=== PATIENT | male | born 1955 | race American Indian/Alaskan Native ===

== ENCOUNTER 2017-06-07 11:28 | Inpatient (IN) | payer BC, OTHER ==
[2017-06-07 13:16] LABS: BASO # 0.06 K/mm3 (0.0-2.0); BASO % 1.2 % (0.0-3.0); EOS # 0.1 (0.0-0.7); EOS % 1.8 % (1.5-5.0); GRAN # 2.73 (1.4-6.5); GRAN % 53.9 % (50.0-68.0); HEMOGLOBIN 12.1 gm/dL (14.0-18.0); LYMPH # 1.9 (1.2-3.4); MEAN CELL VOLUME 81.6 fL (80.0-105.0); MEAN CORPUSCULAR HEMOGLOBIN 28.9 pg (25.0-35.0); MEAN CORPUSCULAR HGB CONC 35.4 g/dl (31.0-37.0); MONO # 0.3 (0.1-0.6); MONO % 6.1 % (1.0-6.0); PLATELET COUNT 317 10^3/uL (120.0-450.0); RBC 4.19 10^6/uL (3.5-6.1); RED CELL DISTRIBUTION WIDTH 12.9 % (11.5-14.5); WHITE BLOOD COUNT 5.1 10^3/ul (4.5-11.0)
[2017-06-07 13:27] LABS: ALB/GLOB RATIO 1.1 (1.1-1.8); ALT/SGPT 23 U/L (7-56); AST/SGOT 18 U/L (15-59); BLOOD UREA NITROGEN 15 mg/dL (7-21); GFR AFRICAN-AMERICAN > 60; GFR NON-AFRICAN AMERICAN 52; MAGNESIUM 1.7 mg/dL (1.7-2.2)
[2017-06-07 13:41] LABS: TROPONIN I < 0.01 ng/mL
--- NOTE | 2017-06-07 13:42 | ED PDOC ---
Arrival/HPI - General Historian: Patient, Family - General Chief Complaint: Altered Mental Status Time Seen by Provider: 06/07/17 12:09 - History of Present Illness Narrative History of Present Illness (Text): 06/07/17 13:41 Mr. Hinkle is a 62 year old male with past medical history of hypertension who presents with his family with a complaint of confusion for the past 3 weeks. Family indicates the patient has not been acting himself. Family indicates he is less active, taking more days off of work, change in his motor movement with increased confusion and trouble with his speech at times. They also indicate the patient has been noted to have mild paralysis of an upper extremity for 15 minutes with out the patient realizing. The patient has not been into see a primary care doctor in the recent past. The patient does have some trouble expressing himself and finding the right words. He is aware of himself, place, and time. He denies focal weakness or generalized weakness, numbness, chest pain, shortness of breath, change in bowel, and fever. (Zachary Arora) Past Medical History - Provider Review Nursing Documentation Reviewed: Yes - Infectious Disease Hx of Infectious Diseases: None - Genitourinary/Gynecological Other/Comment: Gential warts - Psychiatric Hx Substance Use: No - Surgical History Other/Comment: Knee surgery Family/Social History - Physician Review Nursing Documentation Reviewed: Yes Family/Social History: No Known Family HX Smoking Status: Light Smoker < 10 Cigarettes Daily Hx Alcohol Use: No Hx Substance Use: No Allergies/Home Meds Allergies/Adverse Reactions: Allergies Unobtainable Allergy (Verified 06/07/17 12:08) Home Medications: Home Meds Medication Instructions Recorded Confirmed No Known Home Med 06/07/17 06/07/17 Physical Exam Temperature: Afebrile Blood Pressure: Hypertensive Pulse: Regular Respiratory Rate: Normal Appearance: Positive for: Well-Appearing Pain Distress: None Mental Status: Positive for: Alert and Oriented X 3 Finger Stick Blood Glucose: 88 - Systems Exam Head: Present: Atraumatic, Normocephalic Pupils: Present: PERRL Extroacular Muscles: Present: EOMI Conjunctiva: Present: Normal Mouth: Present: Moist Mucous Membranes Neck: Present: Normal Range of Motion Respiratory/Chest: Present: Clear to Auscultation, Good Air Exchange. No: Respiratory Distress, Accessory Muscle Use Cardiovascular: Present: Regular Rate and Rhythm, Normal S1, S2. No: Murmurs Abdomen: Present: Normal Bowel Sounds. No: Tenderness, Distention, Peritoneal Signs Upper Extremity: Present: Normal Inspection, NORMAL PULSES. No: Cyanosis, Edema Lower Extremity: Present: Normal Inspection, NORMAL PULSES. No: Edema Neurological: Present: GCS=15, Other Vital Signs Temp Pulse Resp BP Pulse Ox 06/07/17 16:29 97 H 190/100 H 06/07/17 11:28 98.2 F 80 18 171/110 H 100 Medical Decision Making - Lab Interpretations I have reviewed the lab results: Yes - RAD Interpretation Tour Bus Driver: Radiologist - EKG Interpretation Interpreted by ED Physician: Yes Type: 12 lead EKG ED Course and Treatment: 06/07/17 15:34 Patient Seen With Resident: In agreement with resident note which contains more details about the patient. Patient was seen and evaluated with resident. Came up with plan and treatment together.. (Jose Puga DO) 06/07/17 15:10 Impression: - Mr. Hinkle is a 62 year old male with past medical history of hypertension who is brought in by his family with concerns of 3 week history of confusion and decrease in motor function. Differential Diagnosis included but are not limited to: - Brain mass - Hypertension - Previous Stroke - TIA Plan: - Labs: CBC, CMP, PT, PTT, Type and screen, - Imaging: EKG, CT of head, MRI with and without contrast - Meds: - Reassess and disposition Progress Notes: - Spoke with Dr. Garcia regarding admission to hospital and he is agreeable - Spoke with Dr. Colunga with neurosurgery and requests PT, PTT, Type and screen with admission for further work up 06/07/17 15:37 Chest X-ray Pleura: no pneumothorax Cardiovascular: mild cardiomegaly left ventricular enlargement Osseous structures: no significant abnormalities Impresion: No acute pulmonary pathology. specifically no pulmonary infiltrate. Left ventricular enlargement suggested 06/07/17 17:17 PROCEDURE: CT HEAD WITHOUT CONTRAST. FINDINGS: HEMORRHAGE:See below BRAIN:There is a large cystic lesion in the left frontal lobe measuring 4 x 6.5 cm in size. There is a dense fluid level on the dependent surface of the lesion consistent with a small amount of layered blood. There is mass effect with effacement of sulci and a small amount of midline shift. There is no surrounding vasogenic edema. The etiology is uncertain. This could represent a cystic neoplastic lesion or an intracranial abscess. It is unlikely represent a congenital cyst due to the mass effect. A follow-up MRI study with and without contrast is recommended for further evaluation VENTRICLES:Compression of the left lateral ventricle CALVARIUM:Unremarkable. PARANASAL SINUSES:Unremarkable as visualized. No significant inflammatory changes. MASTOID AIR CELLS:Unremarkable as visualized. No inflammatory changes. OTHER FINDINGS:The emergency department was contacted regarding this case at 2: 10 p.m. IMPRESSION:Large cystic lesion in the left frontal lobe measuring 4 x 6.5 cm. This could represent a cystic neoplasm or possibly an abscess. Follow-up MRI with and without contrast is recommended 06/07/17 17:21 (Zachary Arora) - Lab Interpretations Lab Results: 06/07/17 13:12 06/07/17 13:12 Lab Results 06/07/17 13:12: Free T4 1.12, Total T3 1.03, TSH 3rd Generation 0.92 06/07/17 13:12: Sodium 140, Potassium 3.7, Chloride 105, Carbon Dioxide 27, Anion Gap 12, BUN 15, Creatinine 1.4, Est GFR ( Amer) > 60, Est GFR (Non- Af Amer) 52, Random Glucose 82, Calcium 9.0, Magnesium 1.7, Total Bilirubin 0.6 , AST 18, ALT 23, Alkaline Phosphatase 42, Lactate Dehydrogenase 358, Total Creatine Kinase 75, Troponin I < 0.01, Total Protein 7.6, Albumin 4.0, Globulin 3.7, Albumin/Globulin Ratio 1.1 06/07/17 13:12: WBC 5.1, RBC 4.19, Hgb 12.1 L, Hct 34.2 L, MCV 81.6, MCH 28.9, MCHC 35.4, RDW 12.9, Plt Count 317, MPV 10.0, Gran % 53.9, Lymph % (Auto) 37.0 H , Newton % (Auto) 6.1 H, Eos % (Auto) 1.8, Baso % (Auto) 1.2, Gran # 2.73, Lymph # 1.9, Newton # 0.3, Eos # 0.1, Baso # 0.06 06/07/17 12:04: POC Glucose (mg/dL) 88 - RAD Interpretation Radiology Orders: 06/07/17 12:09 CHEST ONE VIEW [RAD] Stat 06/07/17 12:10 HEAD W/O CONTRAST [CT] Stat 06/07/17 14:34 BRAIN W & WO CONTRAST [MRI] Stat - EKG Interpretation EKG Interpretation (Text): 06/07/17 15:17 EKG: Ordered, reviewed, and independently interpreted the EKG. Rate : 74 BPM Rhythm : NSR Interpretation : No ST-segment elevations or depressions, no T-wave inversions, normal intervals. Left axis deviation (Ryanbarra,Zachary) - Medication Orders Current Medication Orders: Discontinued Medications Amlodipine Besylate (Norvasc) 5 mg PO STAT STA Stop: 06/07/17 15:49 Last Admin: 06/07/17 16:29 Dose: 5 mg - PA / COLLAR POINTER / Resident Statement / has reviewed & agrees with the documentation as recorded. / has examined the patient and agrees with the treatment plan. - Scribe Statement Lindsay Hardwick Provider Scribe Attestation: All medical record entries made by the Scribe were at my direction and personally dictated by me. I have reviewed the chart and agree that the record accurately reflects my personal performance of the history, physical exam, medical decision making, and the department course for this patient. I have also personally directed, reviewed, and agree with the discharge instructions and disposition. (Jose Puga DO) Disposition/Present on Arrival - Present on Arrival Any Indicators Present on Arrival: No History of DVT/PE: No History of Uncontrolled Diabetes: No Urinary Catheter: No History of Decub. Ulcer: No History Surgical Site Infection Following: None - Disposition Have Diagnosis and Disposition been Completed?: Yes Disposition Time: 16:45 Patient Plan: Admission - Disposition Diagnosis: Mass of brain Disposition: HOSPITALIZED Patient Problems: Current Active Problems Problem Status Onset Mass of brain Acute Condition: STABLE
[2017-06-07 13:44] LABS: FREE T4 1.12 ng/dL (0.78-2.19)
[2017-06-07 13:58] LABS: T3 1.03 ng/mL (0.97-1.69)
--- NOTE | 2017-06-07 14:13 | CT ---
PROCEDURE: CT HEAD WITHOUT CONTRAST. HISTORY: r/o ICH- h/o confusion/can't find words in speech COMPARISON: None available. TECHNIQUE: Axial computed tomography images were obtained through the head/brain without intravenous contrast. Radiation dose: Total exam DLP = 780 mGy-cm. This CT exam was performed using one or more of the following dose reduction techniques: Automated exposure control, adjustment of the mA and/or kV according to patient size, and/or use of iterative reconstruction technique. FINDINGS: HEMORRHAGE: See below BRAIN: There is a large cystic lesion in the left frontal lobe measuring 4 x 6.5 cm in size. There is a dense fluid level on the dependent surface of the lesion consistent with a small amount of layered blood. There is mass effect with effacement of sulci and a small amount of midline shift. There is no surrounding vasogenic edema. The etiology is uncertain. This could represent a cystic neoplastic lesion or an intracranial abscess. It is unlikely represent a congenital cyst due to the mass effect. A follow-up MRI study with and without contrast is recommended for further evaluation VENTRICLES: Compression of the left lateral ventricle CALVARIUM: Unremarkable. PARANASAL SINUSES: Unremarkable as visualized. No significant inflammatory changes. MASTOID AIR CELLS: Unremarkable as visualized. No inflammatory changes. OTHER FINDINGS: The emergency department was contacted regarding this case at 2:10 p.m. IMPRESSION: Large cystic lesion in the left frontal lobe measuring 4 x 6.5 cm. This could represent a cystic neoplasm or possibly an abscess. Follow-up MRI with and without contrast is recommended
--- NOTE | 2017-06-07 14:17 | RAD ---
PROCEDURE: CHEST RADIOGRAPH, 1 VIEW HISTORY: r/o infiltrate COMPARISON: None available. FINDINGS: LUNGS: Clear. PLEURA: No pneumothorax or pleural fluid seen. CARDIOVASCULAR: Mild cardiomegaly left ventricular enlargement. OSSEOUS STRUCTURES: No significant abnormalities. VISUALIZED UPPER ABDOMEN: Normal. OTHER FINDINGS: None. IMPRESSION: No acute pulmonary pathology. Specifically no pulmonary infiltrate. Para Left ventricular enlargement suggested
--- NOTE | 2017-06-07 17:23 | CARD ---
APPROVED REPORT EKG Measurement Heart [id number] <Conclusion> Normal sinus rhythm Left axis deviation Voltage criteria for left ventricular hypertrophy Nonspecific ST abnormality Abnormal ECG
[2017-06-07 18:16] LABS: INR 1.06 (0.93-1.08); PARTIAL THROMBOPLASTIN TIME 30.8 Seconds (23.7-30.8); PROTHROMBIN TIME 11.4 Seconds (9.9-11.8)
[2017-06-07 21:12] VITALS: RESP 20
--- NOTE | 2017-06-08 02:36 | CP.PCM.PN ---
Subjective - Date & Time of Evaluation Date of Evaluation: 06/08/17 Time of Evaluation: 02:36 - Subjective Subjective: Patient was seen at bedside because nurse had called and told that his low heart rate was 50/min and latest one was 58 per minute. He has no complaints now. Denies chest pain, sob, history of heart disease. Agrees to having history of athletic activities. BP 144/93. This 62 year old [place] male was admitted with history of confusion for 3 weeks, trouble with speech, weakness of upper extremity, brain mass. Has PMH of HTN, light smoker. Objective - Vital Signs/Intake and Output Vital Signs (last 24 hours): Temp Pulse Resp BP Pulse Ox 98 F 51 L 20 141/93 H 98 06/08/17 01:09 06/08/17 01:09 06/08/17 01:09 06/08/17 01:09 06/07/17 16:00 Intake and Output: 06/07/17 06/08/17 18:59 06:59 Intake Total 360 Output Total 500 Balance -140 - Medications Medications: Current Medications Clonidine HCl (Catapres) 0.1 mg PO TID BRI Levetiracetam (Keppra) 500 mg PO BID BRI - Labs Labs: PT 11.4 Seconds (9.9-11.8) 06/07/17 13:05 INR 1.06 (0.93-1.08) 06/07/17 13:05 APTT 30.8 Seconds (23.7-30.8) 06/07/17 13:05 - Constitutional Appears: Well, No Acute Distress - Head Exam Head Exam: ATRAUMATIC, NORMAL INSPECTION, NORMOCEPHALIC - Eye Exam Eye Exam: Normal appearance - ENT Exam ENT Exam: Normal External Ear Exam - Neck Exam Neck Exam: Normal Inspection - Respiratory Exam Respiratory Exam: NORMAL BREATHING PATTERN - Cardiovascular Exam Cardiovascular Exam: absent: JVD - GI/Abdominal Exam GI & Abdominal Exam: absent: Distended - Rectal Exam Rectal Exam: Deferred - Exam Additional comments: Deferred. - Extremities Exam Extremities Exam: Normal Inspection - Back Exam Back Exam: NORMAL INSPECTION - Neurological Exam Neurological Exam: Alert, Oriented x3 - Psychiatric Exam Psychiatric exam: Normal Affect, Normal Mood - Skin Skin Exam: Normal Color Assessment and Plan - Assessment and Plan (Free Text) Assessment: Confusion. Speech difficulty. Intermittent bradycardia. HTN. Brain mass.-Cystic lesion in left frontal lobe. Light smoker. Plan: Observation for heart rhythm. Management as per PMD.
--- NOTE | 2017-06-08 03:35 | CON ---
HISTORY OF PRESENT ILLNESS: This is a 62-year-old black male with past medical history of hypertension, and the patient has not been going to doctor, came here with confusion for the past 3 weeks and at the bedside, and the patient has been taking more days off from the work and still confused. So, family brought him to the emergency room today with a complaint of increasing confusion and trouble in speaking and called to evaluate the patient. CAT scan of the head was done which showed large cyst in the brain and neurosurgeon was called, and the patient is going for MRI. PAST MEDICAL HISTORY: As above. SOCIAL HISTORY: Does not smoke, does not drink. PHYSICAL EXAMINATION VITAL SIGNS: Blood pressure 171/110. HEENT: Normocephalic and atraumatic. NECK: Supple. NEUROLOGIC: Alert, awake and oriented x3. No aphasia. Cranial nerve II through XII are tested. Pupils reactive. EOM intact. Visual field full. No facial asymmetry. Tongue midline. Motor: Moves all the extremities equally and spontaneously. Deep tendon reflexes is 1+. Both plantars are downgoing. Sensory appears intact. Cerebellar and gait, deferred. IMPRESSION: Intracranial mass on the CAT scan and we will do the MRI of the head and neurosurgeon on-board will follow up for further recommendation. I started the patient on Keppra 500 twice a day. Morro Mills MD
--- NOTE | 2017-06-08 03:39 | HP ---
HISTORY OF PRESENT ILLNESS: I was called down to the emergency room to see, Mitul Hinkle. This is 62-year-old -[place] male who presents with 3 weeks of not-acting himself. He has been a little bit off, less active, taking more days off from work, changes his motor movement, increased confusion, trouble with the speech at times. He had mild paralysis of the left upper extremity for 15 minutes without patient realizing it. He has not been seeing his primary care doctor. PAST MEDICAL HISTORY: Hypertension. Not sure if he has taken his medications because it is quite high. He said in the past, he has had knee surgery. FAMILY HISTORY: Hypertension in the family. SOCIAL HISTORY: He is a live smoker, 10 cigarettes per day. No alcohol. No drugs. ALLERGIES: COULD NOT OBTAIN. MEDICATIONS: Could not obtain. REVIEW OF SYSTEMS: He had some vision and hearing issues. He is little bit off when I talk to him. No apparent chest pain or shortness of breath. He has been weak at times, little bit confused. Hard to get a good review systems on him. PHYSICAL EXAMINATION GENERAL: He is alert and oriented times 2 to 3 depends. He is well appearing. No acute distress to look at him, but he is a little bit off. VITAL SIGNS: He has 98.2 temperature, 80 pulse, 18 respiratory rate, 171/110 blood pressure, I have put him on Norvasc 5 mg daily and 100% O2 saturation. HEENT: Extraocular muscle intact. Pupils equal and reactive to light and accommodation. Throat moist. NECK: Supple. Thyroid midline. No palpable lymphadenopathy appreciated. HEART: Regular rate, normal S1, S2. LUNGS: Decreased breath sounds. Clear to auscultation. ABDOMEN: Soft and nontender. Positive bowel sounds. EXTREMITIES: No edema. NEUROLOGIC: GCS is 15. Neurologically he is little bit off, but he has got good range of motion of his extremities. SKIN: Warm and dry. LABORATORY DATA: He has 140 sodium, potassium 3.7, BUN 15, creatinine 1.4, GFR 62, sugar 82, calcium 9, magnesium 1.7, total bilirubin is 0.68, AST is 18, ALT is 23, alk phos is 42, lactate lactate dehydrogenase is 358, total creatinine kinase 75, troponin 1 is less than 0.01, total protein 7.6, albumin 4, globulin 3.7, TSH is 492. White count 5.1, hemoglobin 12.1, hematocrit 34.2, platelets 317. Chest x-ray; left ventricular enlargement, no acute pulmonary pathology. CAT of the head which shows something that we are not expecting, large cystic lesion in the left frontal lobe measuring 4 x 6.5 cm this could represent a cystic lesion or possibly an abscess, could be a cystic neoplasm. IMPRESSION AND PLAN: I called neurology, neurosurgeon and cardiology. I have put him on Norvas. Check labs tomorrow. Keep the blood pressure down. Hopefully, he will be okay and we will see how he does overnight. See what the neurosurgeon wants to do. He has got change in mentation and physical ability with brain mass and elevated hypertension. Alan Gee DO MTDD
[2017-06-08 07:11] LABS: MEAN CELL VOLUME 81.9 fL (80.0-105.0); MEAN CORPUSCULAR HEMOGLOBIN 27.8 pg (25.0-35.0); MEAN CORPUSCULAR HGB CONC 33.9 g/dl (31.0-37.0); MEAN PLATELET VOLUME 9.8 fl (7.0-11.0); RBC 4.32 10^6/uL (3.5-6.1); RED CELL DISTRIBUTION WIDTH 13.1 % (11.5-14.5); WHITE BLOOD COUNT 5.8 10^3/ul (4.5-11.0)
[2017-06-08 07:46] LABS: ALB/GLOB RATIO 1.2 (1.1-1.8); ALBUMIN 3.9 g/dL (3.0-4.8); ALT/SGPT 21 U/L (7-56); AST/SGOT 22 U/L (15-59); BLOOD UREA NITROGEN 15 mg/dL (7-21); CALCIUM 8.7 mg/dL (8.4-10.5); GFR AFRICAN-AMERICAN > 60; GFR NON-AFRICAN AMERICAN 56
--- NOTE | 2017-06-08 10:01 | PN ---
HISTORY OF PRESENT ILLNESS: I saw the patient in bed this morning. He is mildly confused, but in fair spirits. No chest pain, no shortness of breath, no headache. He is not really sure why he is here that he has got a brain mets, so I went over that again with him. Neurosurgery had spoken and Neurology is on the case. PHYSICAL EXAMINATION VITAL SIGNS: 98 temperature; 50 pulse; 155/88 to 141/92 blood pressures; 20 respiratory rate and 100% O2 on room air. HEENT: Head is atraumatic and normocephalic. Throat is moist. NECK: Supple. HEART: Regular rate. LUNGS: Decreased breath sounds. Clear to auscultation. ABDOMEN: Soft. EXTREMITIES: No edema. MEDICATIONS: He is on Catapres 0.1 three times a day and Keppra 500 twice a day to be the procedure precaution. LABORATORY DATA: He has 140 sodium, potassium 3.9, BUN 15, creatinine 1.3, GFR is 56, sugar is 88, calcium is 8.7, magnesium is 1.7, total bilirubin is 0.7, AST is 22, ALT is 21, alkaline phosphatase is 41, troponin is less than 0.01, total protein is 7.3, TSH is 0.92. 5.8 white count, 12 hemoglobin, 35.4 hematocrit with 315 platelets. He has consults with Neurology, Neurosurgery and Cardiology. He is on Catapres. He is on Keppra. They can do an MRI of the brain which will help give us more of a picture what we need to do and we will continue aggressive treatment and care for brain mets, hypertension, confusion. We will check his labs tomorrow and discuss with him. Alan Gee DO MTDChiara
--- NOTE | 2017-06-08 10:35 | CP.PCM.PN ---
<GarethCady - Last Filed: 06/08/17 13:28> Subjective - Date & Time of Evaluation Date of Evaluation: 06/08/17 Time of Evaluation: 10:00 - Subjective Subjective: PGY-2 neurology progress note for Dr Mills. Patient lying comfortably on the bed, in no distress. Patient is a&ox3, patient reprots his confusion has resolved. Patient denies cp, sob, n.v.d. Objective - Vital Signs/Intake and Output Vital Signs (last 24 hours): Temp Pulse Resp BP Pulse Ox 98 F 50 L 20 164/100 H 100 06/08/17 08:25 06/08/17 08:25 06/08/17 08:25 06/08/17 09:23 06/08/17 08:25 Intake and Output: 06/08/17 06/08/17 06:59 18:59 Intake Total 360 Output Total 500 Balance -140 - Medications Medications: Current Medications Clonidine HCl (Catapres) 0.1 mg PO TID [facility] Last Admin: 06/08/17 09:23 Dose: 0.1 mg Levetiracetam (Keppra) 500 mg PO BID [facility] Last Admin: 06/08/17 09:23 Dose: 500 mg - Labs Labs: 06/08/17 06:30 06/08/17 06:30 PT 11.4 Seconds (9.9-11.8) 06/07/17 13:05 INR 1.06 (0.93-1.08) 06/07/17 13:05 APTT 30.8 Seconds (23.7-30.8) 06/07/17 13:05 - Constitutional Appears: No Acute Distress - Head Exam Head Exam: ATRAUMATIC, NORMAL INSPECTION, NORMOCEPHALIC - Eye Exam Eye Exam: EOMI, Normal appearance, PERRL. absent: Scleral icterus Pupil Exam: NORMAL ACCOMODATION, PERRL - ENT Exam ENT Exam: Mucous Membranes Moist - Neck Exam Neck Exam: Full ROM, Normal Inspection - Respiratory Exam Respiratory Exam: Clear to Ausculation Bilateral, NORMAL BREATHING PATTERN. absent: Rales, Rhonchi, Wheezes, Respiratory Distress, Stridor - Cardiovascular Exam Cardiovascular Exam: REGULAR RHYTHM, +S1, +S2 - GI/Abdominal Exam GI & Abdominal Exam: Soft, Normal Bowel Sounds. absent: Distended, Tenderness - Extremities Exam Extremities Exam: Full ROM, Normal Inspection - Back Exam Back Exam: NORMAL INSPECTION - Neurological Exam Neurological Exam: Alert, Awake, CN II-XII Intact, Oriented x3, Reflexes Normal Neuro motor strength exam: Left Upper Extremity: 5, Right Upper Extremity: 5, Left Lower Extremity: 5, Right Lower Extremity: 5 Additional comments: +2 reflexes throughout. No muscle rigidities, no pronator drifts, normal finger to nose. Sensation to light touch in the face and lower extremities intact Gait deferred. - Psychiatric Exam Psychiatric exam: Normal Affect, Normal Mood - Skin Skin Exam: Dry, Normal Color, Warm Assessment and Plan - Assessment and Plan (Free Text) Assessment: Patient is a 62 y/o AAM with pmh of htn, light smoker whom presented with 2 days of confusion found to have hypertensive urgency on admission, with Ct brain revealing cystic brain lesion. Patient is being followed by neurosurgery. Plan: - Pending MRI - Follow up with neurosurgeon rec - Rec heme/onc consult - c/w keppra for seizure prephylaxis - seizure and fall precaution - Keep SBP between 130-140s. Thank you for consulting Dr Mills. Patient seen, examined, and discussed with Dr Mills. <Ramon Mills - Last Filed: 06/08/17 14:03> Objective - Vital Signs/Intake and Output Vital Signs (last 24 hours): Temp Pulse Resp BP Pulse Ox 98 F 50 L 20 164/100 H 100 06/08/17 08:25 06/08/17 08:25 06/08/17 08:25 06/08/17 09:23 06/08/17 08:25 Intake and Output: 06/08/17 06/08/17 06:59 18:59 Intake Total 360 Output Total 500 Balance -140 - Medications Medications: Current Medications Levetiracetam (Keppra) 500 mg PO BID [facility] Last Admin: 06/08/17 09:23 Dose: 500 mg Losartan Potassium (Cozaar) 100 mg PO DAILY [facility] - Labs Labs: 06/08/17 06:30 06/08/17 06:30 PT 11.4 Seconds (9.9-11.8) 06/07/17 13:05 INR 1.06 (0.93-1.08) 06/07/17 13:05 APTT 30.8 Seconds (23.7-30.8) 06/07/17 13:05 Attending/Attestation - Attestation I have personally seen and examined this patient.: Yes I have fully participated in the care of the patient.: Yes I have reviewed all pertinent clinical information, including history, physical exam and plan: Yes
[2017-06-08] MEDS ORDERED: Gadodiamide 287 MG/ML VIAL (15ML) IV ONE (13:19)
--- NOTE | 2017-06-08 14:20 | CT ---
PROCEDURE: CT Abdomen and Pelvis without intravenous contrast HISTORY: abdominal mass COMPARISON: None. TECHNIQUE: Without contrast. Contrast Dose: Radiation dose: Total exam DLP = 806 mGy-cm. This CT exam was performed using one or more of the following dose reduction techniques: Automated exposure control, adjustment of the mA and/or kV according to patient size, and/or use of iterative reconstruction technique. FINDINGS: LOWER THORAX: Unremarkable. LIVER: Unremarkable. No gross lesion or ductal dilatation. GALLBLADDER AND BILE DUCTS: Unremarkable. PANCREAS: Unremarkable. No gross lesion or ductal dilatation. SPLEEN: Unremarkable. ADRENALS: Unremarkable. No mass. KIDNEYS AND URETERS: Unremarkable. No hydronephrosis. No solid mass. There is some contrast in the renal collecting systems most likely related to recent MRI. VASCULATURE: Unremarkable. No aortic aneurysm. BOWEL: Unremarkable. No obstruction. No gross mural thickening. APPENDIX: Unremarkable. Normal appendix. PERITONEUM: Unremarkable. No free fluid. No free air. LYMPH NODES: Bilateral inguinal adenopathy right greater than left. BLADDER: Unremarkable. REPRODUCTIVE: Unremarkable. BONES: No acute fracture. OTHER FINDINGS: Extensive unusual appearing cutaneous lesions are seen in the lower abdomen which have an a regular contour. The masses measure 2.5 cm in thickness and span a with of 22 cm over the lower pelvis as seen on axial image 157 and coronal image 27. The mass also involves the left side of the scrotum. Clinical correlation is suggested. IMPRESSION: Extensive large cutaneous lesions over the lower pelvis 2.5 cm in thickness and 23 cm in width. Bilateral inguinal adenopathy right greater than left.
--- NOTE | 2017-06-08 14:52 | MRI ---
PROCEDURE: MRI BRAIN WITH AND WITHOUT CONTRAST HISTORY: left frontal lobe cystic lesion COMPARISON: Head CT dated 06/07/2017 without contrast. TECHNIQUE: Multiplanar, multisequence MR images of the brain were obtained with and without intravenous contrast enhancement. FINDINGS: HEMORRHAGE: Please see brain parenchyma discussion below. DWI: No evidence of an acute or early subacute infarction. BRAIN PARENCHYMA: The cystic lesions seen in the left frontal lobe in prior CT noted above is identified following fluid signal on all sequences measuring 4.9 x 7.4 x 5.6 cm (traverse by anteroposterior by superoinferior dimensions). Trace hemosiderin layers at the dependent portion of the cyst with the cyst appearing minimally complicated antro superiorly. In addition, local parenchyma appears inhomogeneous in signal change here at the medial right frontal lobe near the vertex. No additional hemosiderin is appreciated throughout the remainder of the brain there is no evidence of an acute is her brain infarction. Mass effect exerted by this large cyst is quite mild causing a rightward shift of 9.4 mm. Limited but definite rim enhances appreciate throughout this cystic structure with a enhancement of complex portion the cyst anterosuperiorly. Minimally edematous soft tissue adjacent to this complex component (superiorly) did not appear to significantly enhance. Presence of the this nodular appearing tissue however raises question of an intermediate grade malignancy with an infectious etiology still not completely excluded though not favored. ENHANCEMENT: Discussed above VENTRICLES: The aforementioned left frontal cystic mass at partially effaces the left lateral ventricle. . No hydrocephalus. CRANIUM: Unremarkable. ORBITS: Grossly unremarkable. PARANASAL SINUSES/MASTOIDS: Clear VASCULAR SYSTEM: Skull base flow voids intact. OTHER FINDINGS: None . IMPRESSION: A 7.4 cm complex cystic mass in the left frontal lobe with nodular soft tissue anterosuperiorly associated with it and limited peripheral enhancement in a pattern that may reflect an intermediate-grade primarily with metastatic disease not completely excluded. [id number] mass effect is exerted by this cystic mass with limited rightward midline shift just under 1 cm. An infectious etiology remains difficult to completely exclude but is not favored. Neurosurgical consultation is advised.
[2017-06-08 16:31] VITALS: TEMP 98.6
--- NOTE | 2017-06-08 16:52 | CP.PCM.CON ---
<Cristela Valdez - Last Filed: 06/08/17 20:05> History of Present Illness - History of Present Illness History of Present Illness: Seen and examined at bedside with present, chart reviewed. Request for consult is for abdominal mass. HPI: This is a 62 year old male with a PMH of hypertension, was brought to the ER with reports of trouble with speech, patient has periods of confusion, paralysis/weakness of upper extremities mainly left upper and has become less active. His states that he has not been to the doctor for at least 20 years. He had a heat ct on admission that reveal a large cystic mass in the left frontal lobe. He just return form MRI of the brain, The patient is also noted to have a cutaneous growth in his suprapubic area mainly on the right side. The patient and the report that he has had it for years and that it started one or two on his genital area and has been growing, he has never had it checked. He denies pain, bleeding. Denies any known STDs. Denies weight loss , N/V, abdominal pain, dysuria, hematuria, no loss in appetite. Never had egd or colon. PMH: HTN PSH: denies Allergies: denies Family HX: denies MEDS: reviewed as per MAR Social HX: former smoker, denies etoh, drugs ROS: systems reviewed at best with positive findings, see HPI. ct scan A&P, no contrast: report reviewed show large cutaneous mass lower pelvis , bilateral inguinal adenopathy. No acute findings bowel. Brain MRI report reviewed:left frontal cystic mass cant exclude infectious etiology but not favored , rec neurosurgical evaluation Past Patient History - Infectious Disease Hx of Infectious Diseases: None - Past Social History Smoking Status: Current Some Days Smoker - CARDIAC Hx Hypertension: Yes - MUSCULOSKELETAL/RHEUMATOLOGICAL Hx Falls: No - GENITOURINARY/GYNECOLOGICAL Other/Comment: Gential warts - PSYCHIATRIC Hx Substance Use: No - SURGICAL HISTORY Other/Comment: Knee surgery Meds Allergies/Adverse Reactions: Allergies Allergy/AdvReac Type Severity Reaction Status Date / Time Unobtainable Allergy Verified 06/07/17 12:08 - Medications Medications: Current Medications Levetiracetam (Keppra) 500 mg PO BID [facility] Last Admin: 06/08/17 09:23 Dose: 500 mg Losartan Potassium (Cozaar) 100 mg PO DAILY [facility] Physical Exam - Constitutional Appears: No Acute Distress - Head Exam Head Exam: NORMAL INSPECTION - Eye Exam Eye Exam: Normal appearance. absent: Scleral icterus - ENT Exam ENT Exam: Mucous Membranes Moist - Neck Exam Neck exam: Positive for: Normal Inspection - Respiratory Exam Respiratory Exam: Clear to Auscultation Bilateral, Prolonged Expiratory Phase. absent: Respiratory Distress - Cardiovascular Exam Cardiovascular Exam: +S1, +S2 - GI/Abdominal Exam GI & Abdominal Exam: Normal Bowel Sounds, Soft. absent: Distended, Guarding, Organomegaly, Rebound, Tenderness Additional comments: supra pubic mainly right side with large cutaneous mass, overgrowth in large bunches, with foul odor. also noted on groin and a few near penile area, nontender - Extremities Exam Extremities exam: Positive for: pedal pulses present. Negative for: calf tenderness, pedal edema - Neurological Exam Neurological exam: Alert, Oriented x3 - Skin Skin Exam: Dry, Warm Results - Vital Signs Recent Vital Signs: Last Vital Signs Temp 98 F 06/08/17 08:25 Pulse 50 L 06/08/17 08:25 Resp 20 06/08/17 08:25 BP 164/100 H 06/08/17 09:23 Pulse Ox 100 06/08/17 08:25 - Labs Result Diagrams: 06/08/17 06:30 06/08/17 06:30 Labs: Laboratory Results - last 24 hr 06/08/17 06/08/17 06:30 06:30 WBC 5.8 RBC 4.32 Hgb 12.0 L Hct 35.4 L MCV 81.9 MCH 27.8 MCHC 33.9 RDW 13.1 Plt Count 315 MPV 9.8 Sodium 140 Potassium 3.9 Chloride 103 Carbon Dioxide 27 Anion Gap 14 BUN 15 Creatinine 1.3 Est GFR ( Amer) > 60 Est GFR (Non-Af Amer) 56 Random Glucose 88 Calcium 8.7 Total Bilirubin 0.7 AST 22 ALT 21 Alkaline Phosphatase 41 Total Protein 7.3 Albumin 3.9 Globulin 3.4 Albumin/Globulin Ratio 1.2 Assessment & Plan - Assessment and Plan (Free Text) Assessment: ASSESSMENT: Change in mental status Left frontal Brain Mass Suprapubic large Cutaneous Mass, r/o extensive Condyloma acuminatum Bilateral inguinal adenopathy H/O HTN PLAN: consider ID & dermatology eval diet as tolerated on Keppra dvt prophylaxsis surgery following neurology following neurosurgical eval Thank you for this consult and for allowing us to participate in your patient care, will make further recommendations based upon clinical course. Seen and discussed with Dr. Jewell. <Vikki Jewell V - Last Filed: 06/08/17 23:36> Meds - Medications Medications: Current Medications Levetiracetam (Keppra) 500 mg PO BID [facility] Last Admin: 06/08/17 18:05 Dose: 500 mg Losartan Potassium (Cozaar) 100 mg PO DAILY [facility] Last Admin: 06/08/17 15:17 Dose: 100 mg Results - Vital Signs Recent Vital Signs: Last Vital Signs Temp 98.6 F 06/08/17 16:00 Pulse 54 L 06/08/17 16:00 Resp 20 06/08/17 16:00 BP 153/90 H 06/08/17 19:45 Pulse Ox 100 06/08/17 16:00 - Labs Result Diagrams: 06/08/17 06:30 06/08/17 06:30 Labs: Laboratory Results - last 24 hr 06/08/17 06/08/17 06/08/17 06:30 06:30 22:21 WBC 5.8 RBC 4.32 Hgb 12.0 L Hct 35.4 L MCV 81.9 MCH 27.8 MCHC 33.9 RDW 13.1 Plt Count 315 MPV 9.8 Sodium 140 Potassium 3.9 Chloride 103 Carbon Dioxide 27 Anion Gap 14 BUN 15 Creatinine 1.3 Est GFR ( Amer) > 60 Est GFR (Non-Af Amer) 56 Random Glucose 88 Calcium 8.7 Total Bilirubin 0.7 AST 22 ALT 21 Alkaline Phosphatase 41 Total Protein 7.3 Albumin 3.9 Globulin 3.4 Albumin/Globulin Ratio 1.2 Urine Color Yellow Urine Appearance Clear Urine pH 6.0 Ur Specific [place] 1.020 Urine Protein Negative Urine Glucose (UA) Negative Urine Ketones Negative Urine Blood Negative Urine Nitrate Negative Urine Bilirubin Negative Urine Urobilinogen 0.2 Ur Leukocyte Esterase Negative Attending/Attestation - Attestation I have personally seen and examined this patient.: Yes I have fully participated in the care of the patient.: Yes I have reviewed all pertinent clinical information: Yes Notes (Text): th
--- NOTE | 2017-06-08 16:56 | CON ---
DATE: 06/08/2017 HISTORY OF PRESENT ILLNESS: The patient is a 62-year-old male who presents with several weeks of progressive confusion. CT scan revealed a large cyst in intracerebral. PAST MEDICAL HISTORY: The patient's past medical history is notable for hypertension, which he is not on any medications. No previous cardiac history is noted. Negative diabetes mellitus. The patient denies chest pain or shortness of breath. SOCIAL HISTORY: No smoking history is elicited. REVIEW OF SYSTEMS: Reviewed. PHYSICAL EXAMINATION: VITAL SIGNS: Blood pressure varies from 141-164 systolic, heart rate is in the 50s. NECK: Negative JVD. LUNGS: Without rales. HEART: Reveals a 2/6 systolic ejection murmur. EXTREMITIES: Without edema. EKG shows nonspecific ST-T changes. LABORATORY DATA: Laboratories reveal hemoglobin of 12. The BUN and creatinine are unremarkable. IMPRESSION: 1. Progressive confusion. 2. Intracerebral cyst. 3. Hypertension. 4. No previous cardiac history, although a systolic murmur was noted. PLAN: Given these findings, we will obtain an echocardiogram to evaluate LV function as well as heart murmur. In addition, we will change his clonidine to an ARB for better blood pressure control. Alberto Sorto MD
--- NOTE | 2017-06-08 19:11 | CP.PCM.CON ---
History of Present Illness - History of Present Illness History of Present Illness: General Surgery Consult- Dr. Maguire reason for consult: Abdominal Mass 62M PMH of HTN, presented to the ED with trouble w/ speech, periods of confusion paralysis/weakness of upper extremities mainly left upper and has become less active. Surgery was consulted for mass on lower abdomen. Pt states that the mass has been there for a long time. initial started as a small growth on the shaft of his penis and spread suprapubic. Intermittent malodorous drainage occurred over the last couple of years. was present in the room and states he has not seen a doctor in 20 years. and that she had not seen the mass in a long time. Denies any known STDs. Denies weight loss, N/V, abdominal pain, dysuria, hematuria, no loss in appetite. PMHx: HTN PSH: None ALL: NKDA SocialHx: smoker 1ppd >40yrs Review of Systems - Review of Systems All systems: reviewed and no additional remarkable complaints except Past Patient History - Infectious Disease Hx of Infectious Diseases: None - Past Social History Smoking Status: Current Some Days Smoker - CARDIAC Hx Hypertension: Yes - MUSCULOSKELETAL/RHEUMATOLOGICAL Hx Falls: No - GENITOURINARY/GYNECOLOGICAL Other/Comment: Gential warts - PSYCHIATRIC Hx Substance Use: No - SURGICAL HISTORY Other/Comment: Knee surgery Meds Allergies/Adverse Reactions: Allergies Allergy/AdvReac Type Severity Reaction Status Date / Time Unobtainable Allergy Verified 06/07/17 12:08 - Medications Medications: Current Medications Levetiracetam (Keppra) 500 mg PO BID [facility] Last Admin: 06/08/17 18:05 Dose: 500 mg Losartan Potassium (Cozaar) 100 mg PO DAILY [facility] Last Admin: 06/08/17 15:17 Dose: 100 mg Physical Exam - Constitutional Appears: No Acute Distress - Eye Exam Eye Exam: EOMI - ENT Exam ENT Exam: Mucous Membranes Moist - Respiratory Exam Respiratory Exam: NORMAL BREATHING PATTERN. absent: Accessory Muscle Use, Rales , Rhonchi, Wheezes - Cardiovascular Exam Cardiovascular Exam: +S1, +S2 - GI/Abdominal Exam GI & Abdominal Exam: Mass, Soft Additional comments: cauliflower like mass suprapubic 20cm x 10cm. mild purulent drainage - Skin Additional comments: purulent caulifour pattern suprapubic Results - Vital Signs Recent Vital Signs: Last Vital Signs Temp 98.6 F 06/08/17 16:00 Pulse 54 L 06/08/17 16:00 Resp 20 06/08/17 16:00 BP 166/100 H 06/08/17 16:00 Pulse Ox 100 06/08/17 16:00 - Labs Result Diagrams: 06/08/17 06:30 06/08/17 06:30 Labs: Laboratory Results - last 24 hr 06/08/17 06/08/17 06:30 06:30 WBC 5.8 RBC 4.32 Hgb 12.0 L Hct 35.4 L MCV 81.9 MCH 27.8 MCHC 33.9 RDW 13.1 Plt Count 315 MPV 9.8 Sodium 140 Potassium 3.9 Chloride 103 Carbon Dioxide 27 Anion Gap 14 BUN 15 Creatinine 1.3 Est GFR ( Amer) > 60 Est GFR (Non-Af Amer) 56 Random Glucose 88 Calcium 8.7 Total Bilirubin 0.7 AST 22 ALT 21 Alkaline Phosphatase 41 Total Protein 7.3 Albumin 3.9 Globulin 3.4 Albumin/Globulin Ratio 1.2 Assessment & Plan - Assessment and Plan (Free Text) Assessment: 62M AMS with abdominal Mass Plan: - consider getting Infectious disease on board - STD work up - possible biopsy of lesion - c/w medical management - further recs per Dr. Maguire D/W Dr. Andrez Leung PGY1 - Date & Time Date: 06/08/17 Time: 15:30
[2017-06-08 22:34] LABS: URINE BILIRUBIN NEGATIVE (NEGATIVE); URINE BLOOD NEGATIVE (NEGATIVE); URINE GLUCOSE (UA) NEGATIVE (NEGATIVE); URINE LEUKOCYTE ESTERASE NEGATIVE Leu/uL (NEGATIVE); URINE NITRATE NEGATIVE (NEGATIVE); URINE PROTEIN NEGATIVE mg/dL (<30 mg/dL); URINE UROBILINOGEN 0.2 E.U./dL (<1 E.U./dL)
[2017-06-08 22:35] LABS: URINE APPEARANCE CLEAR (CLEAR); URINE COLOR YELLOW (YELLOW)
[2017-06-09 04:52] VITALS: O2SAT 100
[2017-06-09 07:24] LABS: HEMOGLOBIN 12.1 gm/dL (14.0-18.0); MEAN CELL VOLUME 81.6 fL (80.0-105.0); MEAN CORPUSCULAR HEMOGLOBIN 28.1 pg (25.0-35.0); MEAN CORPUSCULAR HGB CONC 34.5 g/dl (31.0-37.0); RBC 4.3 10^6/uL (3.5-6.1); WHITE BLOOD COUNT 4.9 10^3/ul (4.5-11.0)
[2017-06-09 08:30] LABS: ALB/GLOB RATIO 1.1 (1.1-1.8); ALBUMIN 3.8 g/dL (3.0-4.8); ALT/SGPT 20 U/L (7-56); AST/SGOT 20 U/L (15-59); BLOOD UREA NITROGEN 15 mg/dL (7-21); CALCIUM 8.8 mg/dL (8.4-10.5); GFR AFRICAN-AMERICAN > 60; GFR NON-AFRICAN AMERICAN > 60
[2017-06-09 08:32] VITALS: BP 160/101
--- NOTE | 2017-06-09 09:01 | CP.PCM.PN ---
Subjective - Date & Time of Evaluation Date of Evaluation: 06/09/17 Time of Evaluation: 08:57 - Subjective Subjective: General Surgery Progress Note Resident: Neal Attending: Andrez HPI: Patient seen and examined at bedside. Doing well with no complaints at this time. Tolerating diet. Denies N/V/F/CP/SOB. Able to answer questions appropriately. Objective - Vital Signs/Intake and Output Vital Signs (last 24 hours): Temp Pulse Resp BP Pulse Ox 98.6 F 56 L 20 160/101 H 100 06/09/17 06:00 06/09/17 06:00 06/09/17 06:00 06/09/17 06:00 06/09/17 06:00 Intake and Output: 06/09/17 06/09/17 06:59 18:59 Intake Total 840 Balance 840 - Medications Medications: Current Medications Clonidine HCl (Catapres) 0.1 mg PO BID [facility] Levetiracetam (Keppra) 500 mg PO BID [facility] Last Admin: 06/08/17 18:05 Dose: 500 mg Losartan Potassium (Cozaar) 100 mg PO DAILY [facility] Last Admin: 06/08/17 15:17 Dose: 100 mg - Labs Labs: 06/09/17 06:30 06/09/17 06:30 PT 11.4 Seconds (9.9-11.8) 06/07/17 13:05 INR 1.06 (0.93-1.08) 06/07/17 13:05 APTT 30.8 Seconds (23.7-30.8) 06/07/17 13:05 - Constitutional Appears: Well - Eye Exam Eye Exam: EOMI - ENT Exam ENT Exam: Mucous Membranes Moist - Respiratory Exam Respiratory Exam: Clear to Ausculation Bilateral - Cardiovascular Exam Cardiovascular Exam: REGULAR RHYTHM - GI/Abdominal Exam GI & Abdominal Exam: Soft. absent: Distended, Tenderness Additional comments: Suprapubic fungating mass - Neurological Exam Neurological Exam: Alert, Awake Assessment and Plan - Assessment and Plan (Free Text) Assessment: 62 y/o male with suprapubic mass * ID recs * incisional biopsy monday * will discuss with Dr. Andrez De Jesus DO PGY-1
[2017-06-09 09:43] VITALS: PULSE 60
--- NOTE | 2017-06-09 11:40 | CP.PCM.PN ---
<Cristela Valdez - Last Filed: 06/09/17 11:39> Subjective - Date & Time of Evaluation Date of Evaluation: 06/09/17 Time of Evaluation: 09:15 - Subjective Subjective: Seen and examined at the bedside earlier today. The chart was reviewed.patient is eating breakfast and tolerating, after sitting at the bedside. No acute overnight events reported. Patient denies any nausea, vomiting, dysphagia. He did have bowel movement, no reports of any melena or bright red blood per rectum. Patient have a delayed on relaying his thoughts. Objective - Vital Signs/Intake and Output Vital Signs (last 24 hours): Temp Pulse Resp BP Pulse Ox 98.6 F 60 20 160/101 H 100 06/09/17 06:00 06/09/17 09:41 06/09/17 06:00 06/09/17 09:41 06/09/17 06:00 Intake and Output: 06/09/17 06/09/17 06:59 18:59 Intake Total 840 Balance 840 - Medications Medications: Current Medications Clonidine HCl (Catapres) 0.1 mg PO BID [facility] [place] Last Admin: 06/09/17 09:41 Dose: 0.1 mg Levetiracetam (Keppra) 500 mg PO BID [facility] Last Admin: 06/09/17 09:42 Dose: 500 mg Losartan Potassium (Cozaar) 100 mg PO DAILY [facility] Last Admin: 06/09/17 09:42 Dose: 100 mg - Labs Labs: 06/09/17 06:30 06/09/17 06:30 PT 11.4 Seconds (9.9-11.8) 06/07/17 13:05 INR 1.06 (0.93-1.08) 06/07/17 13:05 APTT 30.8 Seconds (23.7-30.8) 06/07/17 13:05 - Constitutional Appears: No Acute Distress - Eye Exam Eye Exam: Normal appearance. absent: Scleral icterus - ENT Exam ENT Exam: Mucous Membranes Moist - Neck Exam Neck Exam: Normal Inspection - Respiratory Exam Respiratory Exam: Clear to Ausculation Bilateral, NORMAL BREATHING PATTERN. absent: Respiratory Distress - Cardiovascular Exam Cardiovascular Exam: +S1, +S2 - GI/Abdominal Exam GI & Abdominal Exam: Soft, Normal Bowel Sounds. absent: Tenderness Additional comments: suprapubic cauliflower mass present, nontender, foul odor - Extremities Exam Extremities Exam: absent: Calf Tenderness, Pedal Edema Assessment and Plan - Assessment and Plan (Free Text) Assessment: ASSESSMENT: Change in mental status Left frontal Brain Mass Suprapubic large Cutaneous/Cauliflower Mass Bilateral inguinal adenopathy H/O HTN PLAN: diet as tolerated on Keppra on clonidine dvt prophylaxsis, SCDS surgery following, for incisional BX monday neurology following neurosurgical eval ID and oncology eval pending Seen and discussed with Dr. Jewell. <Vikki Jewell V - Last Filed: 06/10/17 00:06> Objective - Vital Signs/Intake and Output Vital Signs (last 24 hours): Temp Pulse Resp BP Pulse Ox 98.6 F 60 20 160/101 H 100 06/09/17 06:00 06/09/17 09:41 06/09/17 06:00 06/09/17 09:41 06/09/17 06:00 - Labs Labs: 06/09/17 06:30 06/09/17 06:30 PT 11.4 Seconds (9.9-11.8) 06/07/17 13:05 INR 1.06 (0.93-1.08) 06/07/17 13:05 APTT 30.8 Seconds (23.7-30.8) 06/07/17 13:05 Attending/Attestation - Attestation Notes (Text): t
--- NOTE | 2017-06-09 11:42 | CP.PCM.PN ---
<GarethCady - Last Filed: 06/09/17 11:51> Subjective - Date & Time of Evaluation Date of Evaluation: 06/09/17 Time of Evaluation: 09:20 - Subjective Subjective: PGY-2 Neurology progress note for Dr Mills. Patient in no acute distress, patient continue to be a&o3, able to identify his family members and is speaking in full sentences. Patient with no complaints, denies headache, dizziness, n.v.d. Objective - Vital Signs/Intake and Output Vital Signs (last 24 hours): Temp Pulse Resp BP Pulse Ox 98.6 F 60 20 160/101 H 100 06/09/17 06:00 06/09/17 09:41 06/09/17 06:00 06/09/17 09:41 06/09/17 06:00 Intake and Output: 06/09/17 06/09/17 06:59 18:59 Intake Total 840 Balance 840 - Medications Medications: Current Medications Clonidine HCl (Catapres) 0.1 mg PO BID [facility] Last Admin: 06/09/17 09:41 Dose: 0.1 mg Levetiracetam (Keppra) 500 mg PO BID [facility] Last Admin: 06/09/17 09:42 Dose: 500 mg Losartan Potassium (Cozaar) 100 mg PO DAILY [facility] Last Admin: 06/09/17 09:42 Dose: 100 mg - Labs Labs: 06/09/17 06:30 06/09/17 06:30 PT 11.4 Seconds (9.9-11.8) 06/07/17 13:05 INR 1.06 (0.93-1.08) 06/07/17 13:05 APTT 30.8 Seconds (23.7-30.8) 06/07/17 13:05 - Constitutional Appears: No Acute Distress, Older Than Stated Age, Chronically Ill - Head Exam Head Exam: ATRAUMATIC, NORMAL INSPECTION, NORMOCEPHALIC - Eye Exam Eye Exam: EOMI, Normal appearance, PERRL. absent: Scleral icterus Pupil Exam: NORMAL ACCOMODATION, PERRL - ENT Exam ENT Exam: Mucous Membranes Moist - Neck Exam Neck Exam: Full ROM, Normal Inspection - Respiratory Exam Respiratory Exam: Clear to Ausculation Bilateral, NORMAL BREATHING PATTERN. absent: Rales, Rhonchi, Wheezes, Respiratory Distress, Stridor - Cardiovascular Exam Cardiovascular Exam: REGULAR RHYTHM, +S1, +S2 - GI/Abdominal Exam GI & Abdominal Exam: Soft, Normal Bowel Sounds. absent: Tenderness - Extremities Exam Extremities Exam: Normal Inspection. absent: Pedal Edema - Back Exam Back Exam: NORMAL INSPECTION - Neurological Exam Neurological Exam: Alert, Awake, CN II-XII Intact, Normal Gait, Oriented x3 Neuro motor strength exam: Left Upper Extremity: 5, Right Upper Extremity: 5, Left Lower Extremity: 5, Right Lower Extremity: 5 Additional comments: +2 reflexes throughout. No muscle rigidities, no pronator drifts, normal finger to nose. Sensation to light touch in the face and lower extremities intact. - Psychiatric Exam Psychiatric exam: Depressed - Skin Skin Exam: Dry, Warm Assessment and Plan - Assessment and Plan (Free Text) Assessment: Patient is a 62 y/o AAM with pmh of htn, light smoker whom presented with 2 days of confusion found to have hypertensive urgency on admission, with Ct brain revealing cystic brain lesion. MRI of the brain 06/08- A 7.4 cm complex cystic mass in the left frontal lobe with nodular soft tissue anterosuperiorly associated with it and limited peripheral enhancement in a pattern that may reflect an intermediate-grade primarily with metastatic disease not completely excluded. Umrj-nh-zjaoerdb mass effect is exerted by this cystic mass with limited rightward midline shift just under 1 cm. An infectious etiology remains difficult to completely exclude but is not favored. Neurosurgical consultation is advised. Patient also had CT abdo/pelvis w/o contrast- Extensive large cutaneous lesions over the lower pelvis 2.5 cm in thickness and 23 cm in width.Bilateral inguinal adenopathy right greater than left. Plan: - Neurosurgery, oncologist, Gi and surgery on board - Surgery considering incisional biopsy on Monday - Tumor markers sent - Keep SBP between 130-140 - Continue keppra for seizure prophylaxis. - Thank you. Patient seen, examined, discussed with Dr Mills. <Ramon Mills - Last Filed: 06/09/17 14:15> Objective - Vital Signs/Intake and Output Vital Signs (last 24 hours): Temp Pulse Resp BP Pulse Ox 98.6 F 60 20 160/101 H 100 06/09/17 06:00 06/09/17 09:41 06/09/17 06:00 06/09/17 09:41 06/09/17 06:00 Intake and Output: 06/09/17 06/09/17 06:59 18:59 Intake Total 840 Balance 840 - Medications Medications: Current Medications Clonidine HCl (Catapres) 0.1 mg PO BID [facility] Last Admin: 06/09/17 09:41 Dose: 0.1 mg Levetiracetam (Keppra) 500 mg PO BID [facility] Last Admin: 06/09/17 09:42 Dose: 500 mg Losartan Potassium (Cozaar) 100 mg PO DAILY [facility] Last Admin: 06/09/17 09:42 Dose: 100 mg - Labs Labs: 06/09/17 06:30 06/09/17 06:30 PT 11.4 Seconds (9.9-11.8) 06/07/17 13:05 INR 1.06 (0.93-1.08) 06/07/17 13:05 APTT 30.8 Seconds (23.7-30.8) 06/07/17 13:05 Attending/Attestation - Attestation I have personally seen and examined this patient.: Yes I have fully participated in the care of the patient.: Yes I have reviewed all pertinent clinical information, including history, physical exam and plan: Yes
--- NOTE | 2017-06-09 13:24 | PN ---
SUBJECTIVE: He is sitting up in bed, he is a little bit confused, little bit off when we look at him. He has an MRI of brain which showed a 7.4 cm complexes thick mass in the left frontal lobe with nodules of soft tissue and to a superiorly associated with it and limited peripheral enhancement in a pattern that may reflect an intermediate grade primarily metastatic disease not completely excluded. Mild to moderate mass effect exhibited by the cystic mass, limited right midline shift under 1 cm an infectious etiology remains difficult to completely exclude, but it is not favored, neurosurgical consult is advised. I have put out a call to of the neurosurgeon, who I do not think has seen him yet, but is spoken to two days ago in the ER. He also had CAT scan of the abdomen and pelvis and that showed an extensive unusual appearing cutaneous lesions are seen in the lower abdomen, which having a regular contour. The mass is measured 2.5 cm in thickness in span with 22 cm of the lower pelvis is seen. A mass also involved the left side of the scrotum, extensive large cutaneous lesion of these two things are related surgeries on the case, I am not sure what surgeries going to do to a biopsy, little bit not sure. He is also being seen by GI and cardiology, cardiology for the elevated blood pressure and has him on clonidine and GI for his abdominal issue. I will call an ID and I am also going to call on oncology, I think this could be cancer and get opinion. I still needs to know for doing surgery on this man or we can send him home. PHYSICAL EXAMINATION: VITAL SIGNS: 98.6 temperature, 62 pulse, 170/100 blood pressure; I will increase the blood pressure medications, 20 respiratory rate and 100% O2 saturation on room air. HEENT: His head is atraumatic and normocephalic. He looks off when we talked to him and when we talked to him, there is a delay in his speech. I am not sure if he is appropriate. HEART: Regular rate. LUNGS: Decrease breath sounds. ABDOMEN: Palpable mass, and positive bowel sounds. EXTREMITIES: No edema. LABORATORY DATA: He has a 4.9 white count, 12.1 hemoglobin, 35.1 and hematocrit with 317 platelets. Sodium is 140, potassium is 3.9, BUN is 15, creatinine is 1.3, GFR is 56, and sugar is 88. Calcium is 8.7, total bilirubin is 0.7, AST is 22, ALT is 21, alkaline phosphatase is 41, total protein is 7.3 and TSH is 0.92. PLAN: I will reach out of his doctors to see if we make up a plan for this young man with a brain mass and abdominal mass with elevated blood pressure. Alan Gee DO MTDD
--- NOTE | 2017-06-09 15:34 | PN ---
DATE: 06/09/2017 SUBJECTIVE: The patient is in a chair without distress. PHYSICAL EXAMINATION VITAL SIGNS: Blood pressure varies from 160 to 170 systolic, heart rate is in the 60s. NECK: Negative JVD. LUNGS: Without rales. HEART: S1 and S2. EXTREMITIES: Without edema. LABORATORY DATA: Hemoglobin is 12.1, chemistries unremarkable. Echocardiogram is pending. IMPRESSION: 1. Confusion. 2. Hypertension. 3. Intracerebral mass. 4. Inguinal adenopathy. Given these findings, awaiting echo for LV function. Clonidine has been added to losartan for better blood pressure control. Alberto Sorto MD
--- NOTE | 2017-06-09 16:54 | CP.PCM.PN ---
Subjective - Date & Time of Evaluation Date of Evaluation: 06/09/17 Time of Evaluation: 14:35 - Subjective Subjective: Patient's family has decided to take him out of here AMA and pt agrees with the same. He is alert,awake,oriented x 3 ,but is somewhat slow in his response. His VS are stable,and he is ambulatory. Pt does not want any further examinations,tests or treatment at this facility. His family and he was advised of the risks they are taking by leaving AMA,namely ,1)the lower abdominal lesions could get worse,spread to other organs in the body,lead to complications and ,2)The brain lesion can enlarge,cause seizures,coma,paralysis and even . 3) Blood pressure can go out of control, can lead to stroke,,seizures,coma and even . They stated they understood what they were told ,then,the patient and his signed AMA and left. They were advised to return to the ER if needed. Objective - Vital Signs/Intake and Output Vital Signs (last 24 hours): Temp Pulse Resp BP Pulse Ox 98.6 F 60 20 160/101 H 100 06/09/17 06:00 06/09/17 09:41 06/09/17 06:00 06/09/17 09:41 06/09/17 06:00 Intake and Output: 06/09/17 06/09/17 06:59 18:59 Intake Total 840 Balance 840 - Medications Medications: Current Medications Clonidine HCl (Catapres) 0.1 mg PO BID [facility] Last Admin: 06/09/17 09:41 Dose: 0.1 mg Levetiracetam (Keppra) 500 mg PO BID [facility] Last Admin: 06/09/17 09:42 Dose: 500 mg Losartan Potassium (Cozaar) 100 mg PO DAILY [facility] Last Admin: 06/09/17 09:42 Dose: 100 mg - Labs Labs: 06/09/17 06:30 06/09/17 06:30 PT 11.4 Seconds (9.9-11.8) 06/07/17 13:05 INR 1.06 (0.93-1.08) 06/07/17 13:05 APTT 30.8 Seconds (23.7-30.8) 06/07/17 13:05
--- NOTE | 2017-06-09 22:44 | CARD ---
APPROVED REPORT EXAM: Two-dimensional and M-mode echocardiogram with Doppler and color Doppler. INDICATION SYSTOLIC MURMUR 2D DIMENSIONS Left Atrium (2D)4.7 (1.6-4.0cm)IVSd1.8 (0.7-1.1cm) LVDd4.6 (3.9-5.9cm)PWd1.9 (0.7-1.1cm) LVDs3.3 (2.5-4.0cm)FS (%) 28.9 % LVEF (%)55.5 (>50%) M-Mode DIMENSIONS Aortic Root3.40 (2.2-3.7cm)Aortic Cusp Exc.1.70 (1.5-2.0cm) Aortic Valve AoV Peak Rjvckpit940.0cm/sAoV VTI51.4cmAO Peak GR.23mmHg AO Mean GR.13mmHgAI P 1/2 [id number] Mitral Valve MV E Usyrykak09.2cm/sMV A Nddlginq11.5cm/sE/A ratio0.8 TDI Lateral E' Peak V7.02cm/sMedial E' Peak V6.43cm/sE/Lateral E'8.4 E/Medial E'9.2 Pulmonary Valve PV Peak Jymrizvp66.4cm/sPV Peak Grad.3mmHg Tricuspid Valve TR Peak Kwaajydr718vk/sRAP PRPPARUS89oxEtGE Peak Gr.25mmHg [id number] LEFT VENTRICLE The left ventricle is normal size. There is mild concentric left ventricular hypertrophy. The left ventricular function is normal. The left ventricular ejection fraction is within the normal range. There is normal LV segmental wall motion. Transmitral Doppler flow pattern is Grade I-abnormal relaxation pattern. RIGHT VENTRICLE The right ventricle is normal size. There is normal right ventricular wall thickness. The right ventricular systolic function is normal. ATRIA The left atrium is mildly dilated. The right atrium size is normal. AORTIC VALVE The aortic valve is moderately sclerotic. There is moderate aortic regurgitation. MITRAL VALVE The mitral valve is mildly thickened. There is no mitral valve regurgitation noted. TRICUSPID VALVE There is mild pulmonary hypertension. GREAT VESSELS The aortic root is normal in size. The IVC is normal in size and collapses >50% with inspiration. PERICARDIAL EFFUSION There is no pericardial effusion. <Conclusion> The left ventricle is normal size. There is mild concentric left ventricular hypertrophy. The left ventricular function is normal. The left ventricular ejection fraction is within the normal range. There is normal LV segmental wall motion. Transmitral Doppler flow pattern is Grade I-abnormal relaxation pattern. The aortic valve is moderately sclerotic. There is moderate aortic regurgitation. There is mild pulmonary hypertension.
--- NOTE | 2017-06-10 12:59 | DS ---
DATE: 06/09/2017 SUBJECTIVE: This is a 62-year-old male who presenting with a month of progressive cognitive dysfunction advanced mostly by confusion, sluggishness, was brought to the hospital, was found to have a large left-sided cystic brain mass along with a large abdominal mass. Neurosurgical evaluation was requested. the patient and his family today, this is in fact ongoing for a month or so. He really reports no other focal deficits. PAST MEDICAL HISTORY: Reviewed in the EMR. MEDICATIONS: Reviewed in the EMR. ALLERGIES: REVIEWED IN THE EMR. SOCIAL HISTORY: Reviewed in the EMR. PHYSICAL EXAMINATION: GENERAL: He is awake, somewhat sluggish. EXTREMITIES: He has 5/5 strength throughout the left side. On the right he has 5-/5 strength in the right arm, right leg is within normal limits. Reflexes are mildly increased on the right. Plantar upgoing on the right. Sensation is grossly intact. Gait is not tested. NEUROLOGIC: He is oriented to his name and the hospital, but not the date and not the year. He is oriented to the president, cannot subtract 7 from 100 even once. He did able to name objects presenting. He does follow commands. MRI of the brain documents a very large cystic lesion with nodular density in the left medial frontal lobe. IMPRESSION AND PLAN: This certainly could represent the metastasis considering his abdominal lesion; however, abscess or primary glioma certainly possible. I recommended to his family that he undergo craniotomy and excisional biopsy of this mass, they indicated that they were interested in pursuing care elsewhere. I informed them that should they change their mind, we will be happy to arrange the scheduling of the procedure at the [facility]. Cristo Alcantara MD
[2017-06-10 20:06] LABS: CA 27.29 31 U/mL (<38)
[2017-06-12 23:03] LABS: TOTAL PSA 0.5 ng/mL (<=4.0)
== END 2017-06-09 14:57 | disposition left against medical advice (07) | DRG 72 ==
LOC: ED 11:28 → ERH 14:30 → 3RNO 16:47
PROVIDERS: ADMIT Family Medicine; ATTEND Family Medicine
DX: G93.9 Disorder of brain, unspecified (principal); R19.00 Intra-abdominal and pelvic swelling, mass and lump, unspecified site; I16.0 Hypertensive urgency; I10 Essential (primary) hypertension; R00.1 Bradycardia, unspecified; R59.0 Localized enlarged lymph nodes; R41.0 Disorientation, unspecified; F17.210 Nicotine dependence, cigarettes, uncomplicated; Z86.73 Personal history of transient ischemic attack (TIA), and cerebral infarction without residual deficits; Z82.49 Family history of ischemic heart disease and other diseases of the circulatory system

== ENCOUNTER 2017-08-14 10:35 | Emergency (ER) | payer BC ==
[2017-08-14 10:38] VITALS: BMI 28.1
--- NOTE | 2017-08-14 11:02 | ED PDOC ---
Arrival/HPI - General Chief Complaint: Seizure Time Seen by Provider: 08/14/17 10:40 - History of Present Illness Narrative History of Present Illness (Text): 08/14/17 10:57 62yo male with hx of brain tumor and surgery this June. Has been off keppra since beginning of July. Pt had a witnessed tonic-clonic seizure before coming to the ER. Pt was post-ictal during the ambulance ride to the hospital, currently back to baseline. Hx provided by EMS and family. Pt denies any complaints at this time. Past Medical History - Provider Review Nursing Documentation Reviewed: Yes - Infectious Disease Hx of Infectious Diseases: None - Cardiac Hx Hypertension: Yes - Hematological/Oncological Other/Comment: brain ca - Musculoskeletal/Rheumatological Hx Falls: No - Genitourinary/Gynecological Other/Comment: Gential warts - Psychiatric Hx Substance Use: No - Surgical History Other/Comment: Knee surgery, brain surgery 06/14/17 Family/Social History Family/Social History: Unknown Family HX Smoking Status: Current Some Days Smoker Hx Alcohol Use: No Hx Substance Use: No Allergies/Home Meds Allergies/Adverse Reactions: Allergies No Known Allergies Allergy (Verified 08/14/17 10:36) Home Medications: Home Meds Medication Instructions Recorded Confirmed Hydrochlorothiazide [Microzide] 25 mg PO DAILY 08/14/17 08/14/17 Lisinopril [Zestril] 10 mg PO DAILY 08/14/17 08/14/17 Metoclopramide [Reglan] 10 mg PO Q8 PRN 08/14/17 08/14/17 Sulfamethoxazole/Trimethoprim 1 tab PO DAILY 08/14/17 08/14/17 [Bactrim DS 800 mg-160 mg] amLODIPine [Norvasc] 10 mg PO DAILY 08/14/17 08/14/17 Physical Exam - Physical Exam Narrative Physical Exam (Text): 08/14/17 11:02 - Review of Systems Constitutional: Normal. absent: Fatigue, Weight Change, Fevers Eyes: Normal ENT: denies sore throat, denies tristhmus Respiratory: Normal. absent: SOB, Cough, Sputum Cardiovascular: absent: Chest Pain, Palpitations, Syncope Gastrointestinal: Normal. absent: Abdominal Pain, Diarrhea, Nausea, Vomiting Genitourinary: Normal. absent: Dysuria, Frequency, Hematuria Musculoskeletal: Normal. absent: Arthralgias, Back Pain, Neck Pain Skin: no rashes, no erythema Neurological: seizure. absent: Focal Weakness Endocrine: Normal Hemo/Lymphatic: Normal Psychiatric: No suicidal or homicidal ideations Physical exam Patient appears age appropriate in no distress, speaking full sentences without difficulty Head atraumatic. No nasal bone deformity or tenderness, no facial or jaw pain/ swelling. No neck midline tenderness, thoracic and lumbar spine with no midline tenderness. Pt moving b/l upper and lower extremities without difficulty, 5/5 strength, with full active and passive ROM. Distal neurovasc fully intact. Abd soft/nt/ng, no hematomas, no peritoneal signs. Neg. pelvic rock. - Systems Exam Head: Present: Atraumatic, Normocephalic Pupils: Present: PERRL Extroacular Muscles: Present: EOMI Conjunctiva: Present: Normal Mouth: Present: Moist Mucous Membranes Neck: Present: Normal Range of Motion. No: MIDLINE TENDERNESS, Paraspinal Tenderness Respiratory/Chest: Present: Clear to Auscultation, Good Air Exchange. No: Respiratory Distress, Accessory Muscle Use, Tachypneic Cardiovascular: Present: Regular Rate and Rhythm, Normal S1, S2, Peripheal Pulses Present. No: Murmurs Abdomen: Present: Normal Bowel Sounds. No: Tenderness, Distention, Peritoneal Signs, Rebound, Guarding Back: Present: Normal Inspection. No: Midline Tenderness, Paraspinal Tenderness Upper Extremity: Present: Normal Inspection. No: Cyanosis, Edema Lower Extremity: Present: Normal Inspection. No: Edema Neurological: Present: GCS=15, Speech Normal, cranial nerves II through XII fully intact with no cerebellar abnormality, neurosensory fully intact. No focal neurological deficits. Skin: Present: Warm, Dry, Normal Color. No: Rashes Lymphatic: Present: OX3, NI, NC Psychiatric: Present: Alert, Oriented x 3, Normal Insight, Normal Concentration Vital Signs Reviewed: Yes Vital Signs Temp Pulse Resp BP Pulse Ox 08/14/17 12:27 82 18 120/82 98 08/14/17 10:50 99.1 F 108 H 20 137/76 98 Temperature: Afebrile Blood Pressure: Normal Pulse: Tachycardic Respiratory Rate: Normal Appearance: Positive for: Well-Appearing Pain Distress: None Mental Status: Positive for: Alert and Oriented X 3 Medical Decision Making ED Course and Treatment: 08/14/17 11:03 case dw Nahum, advanced practitioner, working with Dr. Stoddard she recommends loading with 1g keppra, and restarting pt on 500mg PO BID. also states to dc home and to have pt f/u with [facility] Dr. Barrow. this has been relayed to the pt and family, agree with plan. EKG: sinus tach, 110bpm, normal intervals, no st-segment elevations. Interpreted by me. 08/14/17 11:58 chest xray: Chest X-ray read and interpreted by me, which shows no cardiomegaly, no pneumothorax, no effusions. 08/14/17 12:04 CT HEAD WITHOUT CONTRAST Creator : Paul Muhammad MD FINDINGS: HEMORRHAGE: No intracranial hemorrhage. BRAIN: There is a cystic hypodense lesion in the left frontal lobe measuring 3 x 4 cm in size. This has decreased in size from the previous study where it measured 4 x 6.5 cm. . There has been surgery in the interval with a left frontal craniotomy. There is a small left frontal subdural hematoma adjacent to the craniotomy site. This measures between 9 and 12 mm in thickness. This does not produce significant mass effect. No atrophy or chronic microvascular ischemic changes. VENTRICLES: Unremarkable. No hydrocephalus. CALVARIUM: Unremarkable. PARANASAL SINUSES: Unremarkable as visualized. No significant inflammatory changes. MASTOID AIR CELLS: Unremarkable as visualized. No inflammatory changes. IMPRESSION: Left frontal craniotomy with small adjacent subdural hematoma. Decreased size of cystic lesion in the left frontal lobe 08/14/17 12:15 pt in no distress and denies complaints at this time neurosurgery paged 08/14/17 12:33 clarissa Colunga from neurosurgery in detail, he states he saw the pt in the past. States he looked at the CT. States the subdural has likely been present since the surgery and pt can be dc'd home. Pt has no focal neurological deficits on reevaluation. Ambulates without difficulty. Instructed not to drive until seen and cleared by neuro specialist clarissa Qureshi in detail, also agrees with dc home Pt states he understands to return to the ER right away for new or worsening symptoms or for inability to f/u with PMD or specialist as instructed. Patient states that he fully agrees with and understands discharge instructions. States that he agrees with the plan and disposition. Verbalized and repeated discharge instructions and plan. I have given the patient opportunity to ask any additional questions. - Lab Interpretations Lab Results: 08/14/17 11:05 08/14/17 11:05 Lab Results 08/14/17 11:05: Sodium 140, Potassium 3.7, Chloride 106, Carbon Dioxide 13 L, Anion Gap 25 H, BUN 11, Creatinine 1.3, Est GFR ( Amer) > 60, Est GFR ( Non-Af Amer) 56, Random Glucose 133 H, Calcium 9.2, Total Bilirubin 0.4, AST 38 , ALT 42, Alkaline Phosphatase 50, Total Protein 7.3, Albumin 4.4, Globulin 2.9 , Albumin/Globulin Ratio 1.5 08/14/17 11:05: PT 11.0, INR 1.02, APTT 28.7 08/14/17 11:05: WBC 8.0 D, RBC 4.16, Hgb 12.0 L, Hct 34.9 L, MCV 83.9, MCH 28.8 , MCHC 34.4, RDW 13.7, Plt Count 360, MPV 9.9, Gran % 59.9, Lymph % (Auto) 27.2 , [place] % (Auto) 4.7, Eos % (Auto) 6.8 H, Baso % (Auto) 1.4, Gran # 4.77, Lymph # 2.2, [place] # 0.4, Eos # 0.5, Baso # 0.11 - RAD Interpretation Radiology Orders: 08/14/17 10:44 CHEST ONE VIEW [RAD] Stat 08/14/17 10:46 HEAD W/O CONTRAST [CT] Stat - Medication Orders Current Medication Orders: Discontinued Medications Levetiracetam 1,000 mg/ Sodium (Chloride) 110 mls @ 440 mls/hr IV ONCE ONE Stop: 08/14/17 11:39 Last Admin: 08/14/17 11:57 Dose: 440 mls/hr eMAR Start Stop Document 08/14/17 11:57 [facility] (Rec: 08/14/17 11:57 [id number]) Intravenous Solution Start Date 08/14/17 Start Time 11:57 End Date 08/14/17 End time 12:27 Total Infusion Time 30 Disposition/Present on Arrival - Present on Arrival Any Indicators Present on Arrival: No History of DVT/PE: No History of Uncontrolled Diabetes: No Urinary Catheter: No History of Decub. Ulcer: No History Surgical Site Infection Following: None - Disposition Have Diagnosis and Disposition been Completed?: Yes Diagnosis: Seizure, Subdural hematoma Disposition: HOME/ ROUTINE Disposition Time: 12:37 Patient Plan: Discharge Patient Problems: Current Active Problems Problem Status Onset Seizure Acute Subdural hematoma Acute Condition: GOOD Discharge Instructions (ExitCare): Subdural Hematoma (ED), New-Onset Seizure in Adults (ED) Additional Instructions: PLEASE CALL AND MAKE AN APPOINTMENT WITH [facility] (DR. ARTURO BARROW) DO NOT DRIVE UNTIL CLEARED BY A NEUROLOGIST PLEASE RETURN TO THE EMERGENCY DEPARTMENT FOR NEW OR WORSENING SYMPTOMS. RETURN RIGHT AWAY IF YOU CANNOT FOLLOW UP WITH YOUR PRIMARY CARE DOCTOR, CLINIC, OR SPECIALIST IN 1-2 DAYS. Prescriptions: levETIRAcetam [Keppra] 500 mg PO BID #[id number] Referrals: Leann Pham MD [Primary Care Provider] - Follow up with primary Forms: [facility] (Maltese), WORK NOTE
[2017-08-14 11:12] LABS: BASO # 0.11 K/mm3 (0.0-2.0); BASO % 1.4 % (0.0-3.0); EOS # 0.5 (0.0-0.7); EOS % 6.8 % (1.5-5.0); GRAN # 4.77 (1.4-6.5); GRAN % 59.9 % (50.0-68.0); HEMATOCRIT 34.9 % (42.0-52.0); LYMPH # 2.2 (1.2-3.4); LYMPH % 27.2 % (22.0-35.0); MEAN CELL VOLUME 83.9 fl (80.0-105.0); MEAN CORPUSCULAR HEMOGLOBIN 28.8 pg (25.0-35.0); MEAN CORPUSCULAR HGB CONC 34.4 g/dl (31.0-37.0); MEAN PLATELET VOLUME 9.9 fl (7.0-11.0); MONO # 0.4 (0.1-0.6); MONO % 4.7 % (1.0-6.0); RED CELL DISTRIBUTION WIDTH 13.7 % (11.5-14.5)
[2017-08-14 11:21] LABS: ALB/GLOB RATIO 1.5 (1.1-1.8); ALKALINE PHOSPHATASE 50 U/L (38-126); ALT/SGPT 42 U/L (7-56); AST/SGOT 38 U/L (17-59); BILIRUBIN,TOTAL 0.4 mg/dL (0.2-1.3); BLOOD UREA NITROGEN 11 mg/dL (7-21); CALCIUM 9.2 mg/dL (8.4-10.5); CARBON DIOXIDE 13 mmol/L (21-33); CHLORIDE 106 mmol/L (98-107); GFR AFRICAN-AMERICAN > 60; GLUCOSE,RANDOM 133 mg/dL (70-110); POTASSIUM 3.7 mmol/L (3.6-5.0); SODIUM 140 mmol/L (132-148); TOTAL PROTEIN 7.3 g/dL (5.8-8.3)
[2017-08-14 11:22] LABS: INR 1.02 (0.93-1.08); PARTIAL THROMBOPLASTIN TIME 28.7 Seconds (23.7-30.8)
[2017-08-14] MEDS ORDERED: levETIRAcetam 1,000 MG in Sodium Chloride 0.9% 100 ML IV ONE (11:25)
--- NOTE | 2017-08-14 12:02 | CT ---
PROCEDURE: CT HEAD WITHOUT CONTRAST. HISTORY: seizure COMPARISON: 06/07/2017 TECHNIQUE: Axial computed tomography images were obtained through the head/brain without intravenous contrast. Radiation dose: Total exam DLP = 770 mGy-cm. This CT exam was performed using one or more of the following dose reduction techniques: Automated exposure control, adjustment of the mA and/or kV according to patient size, and/or use of iterative reconstruction technique. FINDINGS: HEMORRHAGE: No intracranial hemorrhage. BRAIN: There is a cystic hypodense lesion in the left frontal lobe measuring 3 x 4 cm in size. This has decreased in size from the previous study where it measured 4 x 6.5 cm. . There has been surgery in the interval with a left frontal craniotomy. There is a small left frontal subdural hematoma adjacent to the craniotomy site. This measures between 9 and 12 mm in thickness. This does not produce significant mass effect. No atrophy or chronic microvascular ischemic changes. VENTRICLES: Unremarkable. No hydrocephalus. CALVARIUM: Unremarkable. PARANASAL SINUSES: Unremarkable as visualized. No significant inflammatory changes. MASTOID AIR CELLS: Unremarkable as visualized. No inflammatory changes. OTHER FINDINGS: None. IMPRESSION: Left frontal craniotomy with small adjacent subdural hematoma. Decreased size of cystic lesion in the left frontal lobe
[2017-08-14 12:28] VITALS: PULSE 82; RESP 18
--- NOTE | 2017-08-14 12:42 | RAD ---
PROCEDURE: CHEST RADIOGRAPH, 1 VIEW HISTORY: cough COMPARISON: Chest 06/07/2017. FINDINGS: LUNGS: History volume appears diminished with some crowding of the bronchovascular markings identified. Underlying limited increase reticular markings are difficult to exclude at this time. No alveolitis. PLEURA: No pneumothorax or pleural fluid seen. CARDIOVASCULAR: Normal. OSSEOUS STRUCTURES: No significant abnormalities. VISUALIZED UPPER ABDOMEN: Normal. OTHER FINDINGS: None. IMPRESSION: Borderline increased bilateral basilar reticular markings versus crowding of the bronchovascular markings. No airspace disease appreciated grossly. No pleural effusion or pneumothorax.
[2017-08-14 13:05] VITALS: BP 134/88; TEMP 98.9; O2SAT 96
--- NOTE | 2017-08-15 09:44 | CARD ---
APPROVED REPORT EKG Measurement Heart [id number] <Conclusion> Sinus tachycardia Possible Left atrial enlargement Left axis deviation Left ventricular hypertrophy Abnormal ECG
== END 2017-08-14 13:05 | disposition home or self-care (01) ==
LOC: ED 10:35
DX: I62.00 Nontraumatic subdural hemorrhage, unspecified (principal); R56.9 Unspecified convulsions; I10 Essential (primary) hypertension
CPT/HCPCS: 70450; 71010; 80053; 85025; 85610; 85730; 93005; 96365; 99285; J1953